=== PATIENT | male | born 1970 | race Caucasian/White ===

== ENCOUNTER 2025-05-31 19:35 | Emergency (ER) | payer MEDICAID ==
[~2025-05-31] VITALS: Ht 177.8 cm; Wt 80.0 kg
[2025-05-31 19:47] VITALS: TEMP 36.7; O2SAT 100
[2025-05-31] MEDS: LABETALOL 5MG/ML 4ML INJ IV ONE (20:24)
[2025-05-31 20:30] LABS: BASOPHILS % 0.2 % (0.0-2.0); EOSINOPHILS % 0.0 % (0.0-5.0); HEMATOCRIT. 45.2 % (42.0-52.0); HEMOGLOBIN. 15.6 g/dL (14.0-18.0); LYMPHOCYTES % 4.4 % (20.0-50.0); MEAN PLATELET VOLUME 8.9 fl (7.4-10.4); MONOCYTES % 4.7 % (2.0-8.0); NEUTROPHILS % 90.7 % (40.0-76.0); PLATELET 203 x1000/uL (130-400); RED BLOOD CELL COUNT 5.39 mill/uL (4.7-6.1); RED CELL DISTRIBUTION WIDTH 14.2 % (11.6-14.6)
[2025-05-31 20:44] LABS: CREATININE 1.0 mg/dL (0.6-1.3)
[2025-05-31 20:45] LABS: TROPONIN I HIGH SENSITIVITY 9 ng/L (3.0-53); UREA NITROGEN BLOOD 12 mg/dL (9-23)
[2025-05-31 20:46] LABS: ASPARTATE AMINOTRANSFERASE 19 IU/L (<34)
[2025-05-31 20:47] LABS: BILIRUBIN DIRECT 0.2 mg/dL (<=3.0); BILIRUBIN TOTAL 0.9 mg/dL (0.1-1.0); PROTEIN TOTAL 7.5 g/dL (6.0-8.3)
[2025-05-31] MEDS: NICARDIPINE 40MG/200ML PREMIX 200 ML IV ONE (21:49)
[2025-05-31 22:05] VITALS: BP 185/128; PULSE 103; RESP 18; O2SAT 100
[2025-05-31 23:06] LABS: ERYTHROCYTE SEDIMENTATION RATE 2 mm/hr (0-20)
[2025-05-31] MEDS ORDERED: IOHEXOL-350 100 ML BOTTLE ONE (23:21)
== END 2025-05-31 22:45 | disposition short-term general hospital (02) ==
LOC: ER 19:35 → EDBEDREQSVC 21:40 → ER 22:45 → CMPBEDREQ 06-01 07:18
DX: I60.9 Nontraumatic subarachnoid hemorrhage, unspecified (principal); I11.0 Hypertensive heart disease with heart failure; I50.9 Heart failure, unspecified
CPT/HCPCS: 80076; 80048; 83735; 85025; 85651; 84484; 36415; 71045; 70496; 70498; 70450; 93005; 96365; 96375; 99291; Q9967; Z7610; J3490